=== PATIENT | female | born 1950 | race Caucasian/White ===

== ENCOUNTER 2023-03-04 19:37 | Emergency (ER) | payer MEDICARE, OTHER ==
[~2023-03-04] VITALS: Ht 162.6 cm; Wt 87.1 kg
[2023-03-04] MEDS ORDERED: NAPR-1164 PO (21:12)
[2023-03-04 21:29] VITALS: BP 152/85; O2SAT 97
== END 2023-03-04 21:29 | disposition home or self-care (01) ==
LOC: ER 19:39
DX: S83.92XA Sprain of unspecified site of left knee, initial encounter (principal); W18.39XA Other fall on same level, initial encounter; Y93.89 Activity, other specified; Y92.89 Other specified places as the place of occurrence of the external cause; Y99.8 Other external cause status
CPT/HCPCS: A4663

== ENCOUNTER 2024-11-19 11:47 | Emergency (ER) | payer MEDICARE, OTHER ==
[~2024-11-19] VITALS: Ht 157.5 cm; Wt 86.2 kg
[~2024-11-19 11:47] MED LIST: NAPR-1164 PO
[2024-11-19] MEDS ORDERED: MECLIZINE HCL 25 MG TABLET ONE (12:09)
[2024-11-19] MEDS: MECLIZINE HCL 25 MG TABLET PO ONE (12:12)
[2024-11-19 12:19] LABS: BASOPHILS # (AUTO) 0.1 K/UL (0.0-0.2); EOSINOPHILS # (AUTO) 0.4 K/uL (0.0-0.7); HEMATOCRIT 44.5 % (31.2-41.9); HEMOGLOBIN 14.9 g/dL (10.9-14.3); LYMPHOCYTES # (AUTO) 1.6 K/uL (0.8-4.8); LYMPHOCYTES % (AUTO) 27.4 % (20.5-51.5); MEAN CORPUSCULAR HEMOGLOBIN 30.3 uug (24.7-32.8); MEAN CORPUSCULAR HGB CONC 33 g/dL (32.3-35.6); MEAN CORPUSCULAR VOLUME 90.7 fL (75.5-95.3); MONOCYTES # (AUTO) 0.5 K/uL (0.1-1.30); MONOCYTES % (AUTO) 8.3 % (0.0-11.0); NEUTROPHILS # (AUTO) 3.4 K/uL (1.8-8.9); NEUTROPHILS % (AUTO) 57.3 % (38.5-71.5); PLATELET COUNT (AUTO) 164 K/uL (179-408); RED BLOOD CELL COUNT(AUTO) 4.91 MIL/uL (3.63-4.92); RED CELL DISTRIBUTION WIDTH 13.5 % (12.3-17.7)
[2024-11-19 12:28] LABS: ERYTHROCYTE SEDIMENTATION RATE 11 MM/HR (0-20)
[2024-11-19 12:38] LABS: ALANINE AMINOTRANSFERASE 37 U/L (14-59); ALBUMIN 3.4 g/dL (3.4-5.0); ALKALINE PHOSPHATASE 94 U/L (50-136); ASPARTATE AMINOTRANSFERASE 22 U/L (15-37); BILIRUBIN,TOTAL 0.6 mg/dL (0.2-1.0); CALCIUM 8.8 mg/dL (8.5-10.1); CARBON DIOXIDE 32 mmol/L (21-32); CHLORIDE 102 mmol/L (98-107); CREATININE 0.9 mg/dL (0.6-1.3); GLUCOSE 146 mg/dL (74-106); POTASSIUM 4.1 mmol/L (3.5-5.1); SODIUM SERUM 139 mmol/L (136-145); TOTAL PROTEIN, SERUM 7.7 g/dL (6.4-8.2); UREA NITROGEN, BLOOD 16 mg/dL (7-18)
[2024-11-19] MEDS ORDERED: MAGNESIUM HYDROXIDE 30 ML LIQUID UDC ONE (13:14)
[2024-11-19] MEDS ORDERED: FLEET ENEMA 133 ML BOTTLE RC ONE (13:14)
[2024-11-19] MEDS: MAGNESIUM HYDROXIDE 30 ML LIQUID UDC PO ONE (13:25)
[2024-11-19] MEDS: FLEET ENEMA 133 ML BOTTLE RC ONE (13:25)
[2024-11-19] MEDS ORDERED: FLAS1KIT2 TP (14:36)
[2024-11-19] MEDS ORDERED: FLAS1EAC2 TP (14:36)
[2024-11-19] MEDS ORDERED: MECL-159 PO (14:36)
[2024-11-19 14:52] VITALS: BP 129/89; TEMP 98.4; O2SAT 96
== END 2024-11-19 14:53 | disposition home or self-care (01) ==
LOC: ER 11:49
DX: R42 Dizziness and giddiness (principal); K56.41 Fecal impaction; E11.9 Type 2 diabetes mellitus without complications; E78.5 Hyperlipidemia, unspecified; I10 Essential (primary) hypertension; F41.9 Anxiety disorder, unspecified
CPT/HCPCS: 36415; 74018; 83735; 85025; 85651; A4606; A4663; J8597